=== PATIENT | male | born 1945 ===

== ENCOUNTER 2017-12-10 00:25 | Inpatient (IN) | payer MEDICARE, OTHER ==
[2017-12-10] VITALS (11 sets, daily range): BP systolic 132–159; BP diastolic 74–101
[~2017-12-10] VITALS: Ht 170.2 cm; Wt 113.4 kg
[~2017-12-10 00:25] MED LIST: AMLO-96 PO; ASPI81TA94 PO; CALC600T63 PO; CARV12.578 PO; CHOL10005 PO; DEXL60CA6 PO; FERR325T24 PO; GABA-549 PO; GLUC15002 PO; MELO-205 PO; METH-280 PO; NIAC50TA13 PO; NITR2.5C15 PO; OMEG-96 PO; OXYC-823 PO; SODI50SP4 NS; VITA1CAP46 PO
--- NOTE | 2017-12-10 08:17 | HISTORY AND PHYSICAL ---
DATE OF ADMISSION: December 10, 2017 IDENTIFICATION/CHIEF COMPLAINT Geovanny is a 72-year-old gentleman with the chief complaint of left knee pain. HISTORY OF PRESENT ILLNESS Patient has long-standing history of knee arthritis, progressively painful and debilitating, refractory to conservative care. Surgery is indicated to relieve symptoms after failure of nonoperative measures. PAST MEDICAL HISTORY * History of heart disease with coronary artery issues. * History of [place] status post stent. * History of arrhythmia status post pacemaker placement. * Hypertension. * Sleep apnea. 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 PAST SURGICAL HISTORY * Stent. * Pacemaker placement. * History of prostate cancer surgery with no evidence of recurrent disease. ALLERGIES 1. MORPHINE, which is actually not an allergy, just shuts down his ability to urinate. 2. He blisters with ADHESIVES. 3. He gets a rash with IODINE. CURRENT MEDICATIONS * Aspirin 81 mg a day. * Dexilant 60 mg a day. * Calcium 600 units per day. * Carvedilol 12.5 mg b.i.d. * Gabapentin 300 mg b.i.d. * Mobic 7.5 mg b.i.d. * Methocarbamol 750 mg b.i.d. * Oxycodone 10 mg b.i.d. * Amlodipine 2.5 mg q.day. * Nitrostat p.r.n. * Other vitamins. SOCIAL HISTORY Negative for tobacco and alcohol use. FAMILY HISTORY Notable for multiple relatives with heart disease. REVIEW OF SYSTEMS Otherwise negative. PHYSICAL EXAMINATION: GENERAL: This is a well-developed, well-nourished male who appears staged age. HEENT: Normocephalic, atraumatic. NECK: Supple. LUNGS: Clear. HEART: Regular. ABDOMEN: Soft. ORTHOPEDIC EXAM: The knee is stiff with crepitus noted. Effusion present. Extensor function intact. Gross stability is good. Skin is intact. Neurovascular function intact. IMAGING Radiographs demonstrate end-stage knee arthritis. ASSESSMENT Left knee end-stage degenerative joint disease, progressively painful and debilitating and refractory to conservative care. PLAN Per patient request, we are going to proceed with total knee arthroplasty. The nature of the procedure, risks, benefits, the anticipated rehab course were reviewed. The risks of the procedure include, but are not limited to , major medical or anesthetic complication, infection, neurovascular injury, blood transfusion, stiffness, scarring, fracture, tendon rupture or instability , implant loosening, migration or failure, persistent or recurrent pain or symptoms, need for additional surgery and other unforeseen. He understands and wishes to proceed. A signed permit was placed in the chart. No guarantees are given or implied. [place]
[2017-12-10] MEDS ORDERED: ONDANSETRON 4 MG/2 ML VIAL ONE (08:36)
[2017-12-10] MEDS ORDERED: DEXAMETHASONE SOD PHOS 10MG/ML ONE (08:36)
[2017-12-10] MEDS ORDERED: PROPOFOL EMUL(*) 10MG/ML 20 ML 20 ML ONE (08:36)
[2017-12-10] MEDS ORDERED: CELECOXIB 200 MG CAP PO ONE (09:00)
[2017-12-10] MEDS ORDERED: NORMOSOL R SOLN(*) 1000 ML BAG 1,000 ML IV PRN ×2 (09:00→13:50)
[2017-12-10] MEDS ORDERED: TRANEXAMIC AC 1000 MG/10ML SDV 1,000 MG in DEXTROSE 5% 50 ML BAG 50 ML IV ONE (09:00)
[2017-12-10] MEDS ORDERED: MIDAZOLAM 2 MG/2 ML VIAL IVP PRN (09:00)
[2017-12-10] MEDS ORDERED: LIDOCAINE/SOD BICARB 8.4% SYR ID ONE (09:00)
[2017-12-10] MEDS ORDERED: PREGABALIN 75 MG CAPSULE PO ONE (09:00)
[2017-12-10] MEDS ORDERED: FAMOTIDINE 20 MG TAB PO ONE (09:00)
[2017-12-10] MEDS ORDERED: ceFAZolin(*) 2GM/D5W 50ML 50 ML IVPB ONE (09:00)
[2017-12-10] MEDS ORDERED: ACETAMINOPHEN 500 MG TAB PO ONE (09:00)
[2017-12-10] MEDS ORDERED: cloNIDine EPIDUR INJ 100MCG/ML 40 MCG, ROPIVACAINE 0.5% 20 ML VIAL 25 ML, EPINEPHrine H... INJ ONE (09:00)
[2017-12-10] MEDS ORDERED: NS(*) 0.9% 500 ML BAG 500 ML ONE (09:38)
[2017-12-10] MEDS ORDERED: fentaNYL CITR 100 MCG/2 ML AMP ONE ×3 (10:42→12:36)
[2017-12-10] MEDS ORDERED: LABETALOL HCL 100 MG/20ML VIAL ONE (10:57)
[2017-12-10] MEDS ORDERED: ePHEDrine 25 MG/5 ML DISP.SYR IVP ONE (11:00)
[2017-12-10] MEDS ORDERED: fentaNYL CITR 250 MCG/5 ML AMP ONE (11:25)
--- NOTE | 2017-12-10 12:58 | RADIOLOGY IMAGING REPORT ---
FACILITY: [facility] PATIENT NAME: Matty Cardona : 1945 MR: [id number] V: [id number] EXAM DATE: ORDERING PHYSICIAN: LIZ PARSONS TECHNOLOGIST: Location: [facility] [place] Patient: Matty Cardona : 1945 Visit/Account:[id number] Date of Sevice: 12/10/2017 Left knee Indication: Postop Comparison: None available Findings: 2 views left knee were obtained. Anatomic alignment status post left total knee arthroplasty. No unexpected osseous finding. Expecte d soft tissue changes. IMPRESSION: 1. Expected appearance status post left total knee arthroplasty. Report Dictated By: Aristides Ge MD at 12/10/2017 12:54 PM Report E-Signed By: Aristides Ge MD at 12/10/2017 12:55 PM WSN:[id number]
[2017-12-10] MEDS: HYDROmorphone HCL 2 MG/ML SDV ONE (13:00)
[2017-12-10] MEDS ORDERED: MAGNESIUM HYDROXIDE* 30ML UDCP PO PRN (13:50)
[2017-12-10] MEDS ORDERED: PROMETHAZINE 25 MG/ML 1 ML AMP IVP PRN (13:50)
[2017-12-10] MEDS ORDERED: BISACODYL 10 MG SUPP PR PRN (13:50)
[2017-12-10] MEDS ORDERED: BENZOCAINE/MENTHOL 1 EACH LOZG PO PRN (13:50)
[2017-12-10] MEDS ORDERED: FLUSH 10 ML SYR IVP PRN (13:50)
[2017-12-10] MEDS ORDERED: diphenhydrAMINE 25 MG CAP PO PRN (13:50)
[2017-12-10] MEDS ORDERED: diphenhydrAMINE 50 MG/ML VIAL IVP PRN (13:50)
[2017-12-10] MEDS ORDERED: ACETAMINOPHEN 325 MG TAB PO PRN (13:50)
[2017-12-10] MEDS: APAP/HYDROCODONE 325/7.5 TAB PO PRN ×2 (14:17→21:44)
--- NOTE | 2017-12-10 15:00 | Hospitalist Consultation ---
History of Present Illness Requesting Physician Dr. Lanier Reason for Consult Medical Management Chief Complaint s/p left knee replacement History of Present Illness He was admitted s/p left knee replacement. It is reported the surgery went well and without complication. History Problems: (1) CAD (coronary artery disease) Status: Chronic (2) Hypertension Status: Chronic (3) Back pain Status: Chronic Home Meds Reported Medications Nitroglycerin (NITROGLYCERIN) 2.5 Mg Capsule.er, PO PRN, #20 CAP 12/04/17 Amlodipine Besylate (AMLODIPINE BESYLATE) 5 Mg Tablet, 2.5 MG PO QDAY, TAB 12/04/17 Oxycodone Hcl (OXYCONTIN) 10 Mg Tab.er.12h, 10 MG PO BID, TAB 12/04/17 Methocarbamol (METHOCARBAMOL) 750 Mg Tablet, 750 MG PO BID 12/04/17 Vitamin B Complex (VITAMIN B COMPLEX) 1 Each Capsule, PO HS, CAPSULE 12/04/17 Niacin (NIACIN) 50 Mg Tablet, 50 MG PO BID 12/04/17 Meloxicam (MELOXICAM) 7.5 Mg Tablet, 7.5 MG PO BID 12/04/17 Cholecalciferol (Vitamin D3) (VITAMIN D3) 1,000 Unit Tablet, 2000 UNIT PO QHS, TAB 12/04/17 Mclaughlin-3 Fatty Acids/Fish Oil (OMEGA 3 1,000 MG SOFTGEL) 1 Each Capsule, 360 MG PO QDAY, CAPSULE 12/04/17 Ferrous Sulfate (IRON) 325 Mg Tablet, 325 MG PO QDAY 12/04/17 Glucosamine Hcl (GLUCOSAMINE HCL) 1,500 Mg Tablet, 1500 MG PO BID 12/04/17 Gabapentin (GABAPENTIN) 300 Mg Capsule, 900 MG PO BID, CAPSULE 12/04/17 Carvedilol (CARVEDILOL) 12.5 Mg Tablet, 12.5 MG PO BID, #10 TAB 12/04/17 Calcium Carbonate (CALCIUM) 600 Mg Tablet, 600 MG PO QDAY 12/04/17 Dexlansoprazole (DEXILANT) 60 Mg Stefano., 60 MG PO QDAY Y for PAIN 12/04/17 Aspirin (ASPIRIN) 81 Mg Tab.chew, 81 MG PO QDAY, TAB.CHEW 12/04/17 Discontinued Reported Medications Sodium Chloride (AYR SALINE) 50 Ml [place], NS PRN, SPRAY 12/04/17 Meloxicam (MELOXICAM) 7.5 Mg Tablet, 7.5 MG PO BID 12/04/17 Cholecalciferol (Vitamin D3) (VITAMIN D3) 1,000 Unit Tablet, 2000 UNIT PO HS, TAB 12/04/17 Allergies: Coded Allergies: adhesive tape (Verified Allergy, Mild, BLISTERS, 12/04/17) iodine (Verified Allergy, Unknown, " BAD RASH" , 12/04/17) morphine (Verified Adverse Reaction, Mild, "SHUTS MY BLADDER DOWN" , ) Hx Smoking: No Caffeine Intake: Soda Caffeine/Cups Per Day: 4 cpd Hx Alcohol Use: No Hx Substance Use Disorder: No Review of Systems All Systems Reviewed/Normal: Yes, Except as Noted Exam Vital Signs Vital Signs Date Time Temp Pulse Resp B/P (MAP) Pulse Ox O2 Delivery O2 Flow Rate FiO2 12/10/17 14:30 82 145/92 (109) 92 12/10/17 14:03 Nasal Cannula 1.0 12/10/17 13:39 98.2 16 General Appearance: Alert, Awake, No Acute Distress, Afebrile Neuro: No Gross deficits Cardiovascular: Regular Rate and Rhythm Respiratory: No Respiratory Distress, Clear to Auscultation Psych: Alert & Oriented X3, Appropriate Mood & Affect Assessment and Plan Problems: (1) Status post left knee replacement Status: Acute Assessment & Plan: Followed by Dr. Lanier. He will be placed on Xarelto for DVT prophylaxis. (2) Hypertension Status: Chronic Assessment & Plan: He is on chronic treatment with Amlodipine and Carvedilol. These medications have been restarted with hold parameters. (3) Back pain Status: Chronic Assessment & Plan: He is on chronic treatment with Gabapentin. (4) CAD (coronary artery disease) Status: Chronic Assessment & Plan: He has a history of CABG and pacemaker. Venous Thromboembolism Antithrombotics Is Pt On Any Antithrombotics?: No Exam Sepsis Risk: No Definite Risk MEENA LOWE IRIDOLOGIST Dec 10, 2017 15:00
[2017-12-10] MEDS: CELECOXIB 200 MG CAP PO SCH (16:50)
[2017-12-10] MEDS: ceFAZolin(*) 1 GM VIAL 1 GM in NS(*) 0.9% 100 ML ADDVANT BAG 100 ML IVPB SCH (19:41)
[2017-12-10] MEDS: GABAPENTIN 300 MG CAP PO SCH (21:39)
[2017-12-11] MEDS: DIAZEPAM 5 MG TAB PO PRN ×3 (01:11→17:46)
[2017-12-11] MEDS: APAP/HYDROCODONE 325/7.5 TAB PO PRN ×4 (01:49→21:00)
[2017-12-11] MEDS: ceFAZolin(*) 1 GM VIAL 1 GM in NS(*) 0.9% 100 ML ADDVANT BAG 100 ML IVPB SCH ×2 (03:20→10:38)
[2017-12-11] MEDS: ZOLPIDEM TARTRATE 5 MG TAB PO PRN (03:29)
[2017-12-11 03:32] VITALS: BP 131/102
[2017-12-11] MEDS ORDERED: NITR0.4T3 SL (04:11)
[2017-12-11] MEDS ORDERED: OXYC5CAP21 PO (04:11)
[2017-12-11] MEDS ORDERED: OXYM30MI5 NS (04:11)
[2017-12-11 07:31] VITALS: BP 146/90
[2017-12-11] MEDS: CARVEDILOL 6.25 MG TAB PO SCH (09:00)
[2017-12-11] MEDS ORDERED: DEXLANSOPRAZOLE 60 MG PO SCH (09:00)
[2017-12-11] MEDS: amLODIPine BESYL(*) 2.5 MG TAB PO SCH (09:00)
--- NOTE | 2017-12-11 09:11 | LEVENE TKA ---
EVENT DATE: December 10, 2017 SURGEON: Osorio Lanier MD ANESTHESIOLOGIST: Mane De La Cruz MD ANESTHESIA: General plus adductor canal block. RAIL GANG SUPERVISOR: Mati Bryan PA-C PREOPERATIVE DIAGNOSIS Left knee degenerative joint disease (DJD). POSTOPERATIVE DIAGNOSIS Left knee degenerative joint disease (DJD). PROCEDURE PERFORMED Left total knee arthroplasty. ESTIMATED BLOOD LOSS Minimal. DRAINS None. SPECIMENS None. COMPLICATIONS None. TOURNIQUET TIME 46 minutes. IMPLANTS USED [employer] knee system, a 4 size left PS femur, a 5 standard tibial baseplate, a 33 mm universal symmetric all polyethylene patella button, 13 mm PS tibial tray, X3 polyethylene. INDICATIONS The patient is 71-year-old gentleman with refractory pain related to end-stage knee arthritis. Surgery is indicated to relieve symptoms. DESCRIPTION OF PROCEDURE The patient was taken to the operating room and placed supine on the operating table. An adductor canal block was administered by the anesthesiologist. General anesthesia was induced. Antibiotics were administered IV. The left lower extremity was prepped and draped in the usual sterile fashion for knee arthroplasty. The limb was exsanguinated with an Esmarch bandage. The tourniquet was inflated to 275 mmHg. A midline longitudinal incision was made and carried down through the skin and subcutaneous tissue to the extensor mechanism. A full-thickness flap was developed far enough medially to allow medial parapatellar arthrotomy to be performed. The patella was everted. The knee was brought into a flexed position. The fat pad, anterior horns of the menisci and cruciate ligaments were debrided. Subperiosteal medial release was initiated in a limited fashion. A step drill was used to enter the distal femur. A 10-inch long alignment guide was used to engage the isthmus. Distal cut set for 5 degrees of valgus relative to anatomic axis. A 10 mm resection block was applied and pinned. Cut was made with an oscillating saw. The AP sizing guide was applied to the distal femoral cup and positioned for 3 degrees of external rotation over the posterior condyles. A size 4 was optimal without significant risk of notching. The four-in-one cutting block was applied. Anterior, posterior, posterior chamfer and anterior chamfer cuts were made respectively. A PS block was applied and centered mediolateral and the bone was resected for the box. The trial femur fits nicely. Attention was turned to tibial preparation. The extramedullary guide was applied and positioned for varus, valgus, posterior slope and rotation. This was set to resect 9 mm from the intact lateral tibial plateau and set down a couple of millimeters to ensure an adequate cut. The block was pinned into position, extramedullary check was made and the cut was made with an oscillating saw. After osteophyte removal and removal of posterior condylar bone off the femur, gaps were balanced and symmetric with minimal additional release required. The size 5 tibial baseplate provided good bony coverage without soft tissue overhang. This was inserted along with a trial liner and trial femur and the knee was brought to extension. The patella was taken from a starting thickness of 23 to a residual of 14 with a patellar clamp and an oscillating saw. A 33 provided optimal bony coverage without soft tissue overhang. The lug holes were drilled. The patella tracts nicely with a no- touch technique. Final tibial preparation consisted of ensuring appropriate rotational and translational position of the tibial component. The Boss was reamed and the fin was punched. All bony surfaces were lavaged. A mix of polymethylmethacrylate was made and the components were cemented in a single stage. After the cement was fully polymerized, the tourniquet was deflated and hemostasis was assured. The wounds were copiously lavaged to remove all loose debris. The 13 PS liner allows the knee to drop to full extension without hyperextension for optimal subcutaneous tissue tension stability. The tray was lavaged and dried and the actual liner was locked into the base. The joint was reduced and the arthrotomy was closed in flexion with # 2 Ethibond, subcutaneous tissue with 3-0 Vicryl and the skin with surgical kely. Xeroform was applied followed by a dry, sterile dressing and a compression wrap. The patient was awakened from the anesthesia and taken to the recovery room in stable condition, having tolerated the procedure well. Plan is for standard TKA rehab protocol. [facility]
[2017-12-11] MEDS: CELECOXIB 200 MG CAP PO SCH ×2 (09:15→16:38)
[2017-12-11] MEDS: RIVAROXABAN 10 MG TAB PO SCH (09:18)
[2017-12-11] MEDS: GABAPENTIN 300 MG CAP PO SCH ×2 (09:19→21:00)
--- NOTE | 2017-12-11 09:50 | Hospitalist Progress Note ---
Subjective Progress Notes Subjective He has complaints of knee pain this morning. He had no acute events overnight. Patient Complains of: Cardiovascular: No: Chest Pain Respiratory: No: Shortness of Breath Physical Exam Vital Signs Date Time Temp Pulse Resp B/P (MAP) Pulse Ox O2 Delivery O2 Flow Rate FiO2 12/11/17 07:33 94 Nasal Cannula 1.0 12/11/17 07:31 97.9 73 16 146/90 (108) Intake and Output 12/12/17 06:59 Intake Total 880 ml Balance 880 ml Intake Oral 880 ml General Appearance: Alert, Awake, No Acute Distress, Afebrile Neuro: No Gross deficits Cardiovascular: Regular Rate and Rhythm Respiratory: No Respiratory Distress, Clear to Auscultation GI: Soft and Non-Tender Psych: Alert & Oriented X3, Appropriate Mood & Affect Assessment and Plan Problems: (1) Status post left knee replacement Status: Acute Assessment & Plan: Followed by Dr. Lanier. He will be placed on Xarelto for DVT prophylaxis. (2) Hypertension Status: Chronic Assessment & Plan: He is on chronic treatment with Amlodipine and Carvedilol. These medications have been restarted with hold parameters. (3) Back pain Status: Chronic Assessment & Plan: He is on chronic treatment with Gabapentin. (4) CAD (coronary artery disease) Status: Chronic Assessment & Plan: He has a history of CABG and pacemaker. Exam Sepsis Risk: No Definite Risk MEENA LOWEP Dec 11, 2017 09:50
[2017-12-11 10:37] VITALS: Ht 170.2 cm; Wt 113.4 kg
[2017-12-11] MEDS: PANTOPRAZOLE SOD 40 MG TABEC PO SCH (10:37)
[2017-12-11 10:51] VITALS: BP 148/87
[2017-12-11 15:38] VITALS: BP 150/85
[2017-12-11 20:38] VITALS: BP 148/89
[2017-12-12 00:01] VITALS: BP 148/86
[2017-12-12] MEDS: DIAZEPAM 5 MG TAB PO PRN ×2 (00:16→11:45)
[2017-12-12] MEDS: APAP/HYDROCODONE 325/7.5 TAB PO PRN ×3 (01:11→13:52)
[2017-12-12] MEDS: ZOLPIDEM TARTRATE 5 MG TAB PO PRN (01:11)
[2017-12-12 04:19] VITALS: BP 117/79
[2017-12-12 07:24] VITALS: BP 145/88
[2017-12-12] MEDS: PANTOPRAZOLE SOD 40 MG TABEC PO SCH (08:28)
[2017-12-12] MEDS: CELECOXIB 200 MG CAP PO SCH (08:29)
[2017-12-12] MEDS: amLODIPine BESYL(*) 2.5 MG TAB PO SCH (08:29)
[2017-12-12] MEDS: RIVAROXABAN 10 MG TAB PO SCH (08:29)
[2017-12-12] MEDS: CARVEDILOL 6.25 MG TAB PO SCH (08:30)
[2017-12-12] MEDS: GABAPENTIN 300 MG CAP PO SCH (08:30)
--- NOTE | 2017-12-12 11:19 | Hospitalist Progress Note ---
Subjective Progress Notes Subjective He has no concerns this morning. He had no acute events overnight. Patient Complains of: Cardiovascular: No: Chest Pain Respiratory: No: Shortness of Breath Physical Exam Vital Signs Date Time Temp Pulse Resp B/P (MAP) Pulse Ox O2 Delivery O2 Flow Rate FiO2 12/12/17 07:49 92 Nasal Cannula 1.0 12/12/17 07:24 97.5 99 20 145/88 (107) Intake and Output 12/13/17 06:59 Intake Total 300 ml Balance 300 ml Intake Oral 300 ml # Voids 1 General Appearance: Alert, Awake, No Acute Distress, Afebrile Neuro: No Gross deficits Cardiovascular: Regular Rate and Rhythm Respiratory: No Respiratory Distress, Clear to Auscultation GI: Soft and Non-Tender Psych: Alert & Oriented X3, Appropriate Mood & Affect Assessment and Plan Problems: (1) Status post left knee replacement Status: Acute Assessment & Plan: Followed by Dr. Lanier. He will be placed on Xarelto for DVT prophylaxis. (2) Hypertension Status: Chronic Assessment & Plan: He is on chronic treatment with Amlodipine and Carvedilol. These medications have been restarted with hold parameters. (3) Back pain Status: Chronic Assessment & Plan: He is on chronic treatment with Gabapentin. (4) CAD (coronary artery disease) Status: Chronic Assessment & Plan: He has a history of CABG and pacemaker. Exam Sepsis Risk: No Definite Risk MEENA LOWE TAFE TEACHER Dec 12, 2017 11:19
[2017-12-12] MEDS ORDERED: RIV10 PO (12:18)
[2017-12-12] MEDS ORDERED: HYDR-4308 PO (14:12)
[2017-12-12] MEDS ORDERED: DIA5 PO (14:12)
== END 2017-12-12 14:33 | DRG 470 ==
LOC: OR 00:25 → MED 13:35
PROVIDERS: ADMIT Orthopaedic Surgery; ATTEND Orthopaedic Surgery
PROC: 0SRD0J9 Replacement of Left Knee Joint with Synthetic Substitute, Cemented, Open Approach (ICD-10-PCS; principal; 2017-12-10 09:52)
DX: M17.12 Unilateral primary osteoarthritis, left knee (principal); I10 Essential (primary) hypertension; I25.10 Atherosclerotic heart disease of native coronary artery without angina pectoris; K21.9 Gastro-esophageal reflux disease without esophagitis; G89.29 Other chronic pain; G47.30 Sleep apnea, unspecified; J45.909 Unspecified asthma, uncomplicated; Z77.090 Contact with and (suspected) exposure to asbestos; E66.9 Obesity, unspecified; I25.2 Old myocardial infarction; Z95.5 Presence of coronary angioplasty implant and graft; Z95.0 Presence of cardiac pacemaker; Z88.5 Allergy status to narcotic agent; Z88.8 Allergy status to other drugs, medicaments and biological substances; Z85.46 Personal history of malignant neoplasm of prostate; Z92.21 Personal history of antineoplastic chemotherapy; Z68.39 Body mass index [BMI] 39.0-39.9, adult; Z98.1 Arthrodesis status
CPT/HCPCS: 36415; 85610; 86850; 86900; 86901; 97161; J0171; J0690; J0735; J1100; J1170; J1885; J2250; J2405; J2704; J2795; J3010; J3490; J7040; J7050; J7060